=== PATIENT | female | born 1950 | race Caucasian/White ===

== ENCOUNTER 2016-09-19 10:37 | Outpatient (CLI) | payer MEDICARE ==
[2016-09-19 11:04] LABS: Hemoglobin A1c 6.4 % (4.0-6.0)
[2016-09-19 11:12] LABS: ALT (SGPT) 20 U/L (0-55); AST (SGOT) 22 U/L (5-34); Alkaline Phosphatase 93 U/L (40-150); Anion Gap 15 mmol/L (10-20); BUN (Urea Nitrogen) 24 mg/dL (9.8-20.1); Bilirubin, Total 0.7 mg/dL (0.2-1.2); Calc. Creatinine Clearance 0 mL/min (70-130); Calcium 9.6 mg/dL (7.8-10.44); Carbon Dioxide 25 mmol/L (23-31); Chloride 107 mmol/L (98-107); Estimated GFR-MDRD 52; Globulin 3.5 g/dL (2.4-3.5); Glucose 119 mg/dL (80-115); Protein, Total 7.5 g/dL (5.8-8.1); Sodium 143 mmol/L (136-145)
[2016-09-19 18:25] LABS: Creatinine, Urine 76.08 mg/dL (47-110); Microalbumin Urine 10.7 mg/dL (0.5-50.0); Microalbumin/Creat Ratio 140.6 mg/g (Less than 30)
== END 2016-09-19 10:38 | disposition home or self-care (01) ==
LOC: MADLAB 10:37
PROVIDERS: ATTEND Family Medicine
DX: E78.5 Hyperlipidemia, unspecified (principal); E11.65 Type 2 diabetes mellitus with hyperglycemia; I10 Essential (primary) hypertension
CPT/HCPCS: 36415; 80053; 82043; 83036

== ENCOUNTER 2017-05-24 12:26 | Emergency (ER) | payer MEDICARE ==
--- NOTE | 2017-05-24 14:27 | CT ---
CT OF THE BRAIN WITHOUT CONTRAST: Comparison: None. History: Head injury with head trauma. Technique: Multiple contiguous axial images were obtained in a CT of the brain without contrast. FINDINGS: There is hyperdensity in the left frontal lobe consistent with a small amount of subarachnoid hemorrh age. No interventricular hemorrhage is seen. No midline shift or downward herniation is present. The calvarium and overlying soft tissues are unremarkable. The visualized paranasal sinuses and masto id air cells are well aerated. IMPRESSION: Small subarachnoid hemorrhage in the left frontal lobe. POS: [facility]
--- NOTE | 2017-05-24 14:53 | RAD ---
THREE VIEWS LUMBOSACRAL SPINE: COMPARISON: None. HISTORY: Low back pain after injury. FINDINGS: Three views of the lumbosacral spine show normal height and alignment of the vertebral bodies and int ervertebral disks without fracture or subluxation. Small osteophytes are seen throughout the lumbar spine. Posterior facet arthrosis is seen in the lower lumbosacral spine. IMPRESSION: Mild degenerative changes of the lumbar spine without acute osseous abnormality. POS: [facility]
--- NOTE | 2017-05-24 14:54 | RAD ---
THREE VIEWS OF THE THORACIC SPINE: Comparison: None. History: Back pain after injury. FINDINGS: Three views of the thoracic spine show normal height and alignment of the vertebral bodies and interv ertebral disc without fracture or subluxation. Small osteophytes are seen throughout the thoracic spi ne. IMPRESSION: Mild degenerative changes of the thoracic spine without acute osseous abnormality. POS: [facility]
[2017-05-24] MEDS ORDERED: Morphine 4 MG/ML VIAL ONE (15:42)
[2017-05-24] MEDS ORDERED: Acetaminophen 500 MG TAB ONE (15:44)
[2017-05-24 15:52] LABS: INR-International Normal Ratio 1.1; Prothrombin Time 14.7 SEC (12.0-14.7)
[2017-05-24 15:53] LABS: PTT 42.5 SEC (22.9-36.1)
[2017-05-24 16:00] LABS: #Basophils 0.1 thou/uL (0.0-0.2); #Eosinphils 0.1 thou/uL (0.0-0.7); #Lymphocytes 2.1 thou/uL (1.20-3.40); #Monocytes 0.4 thou/uL (0.11-0.59); #Neutrophils 6.2 thou/uL (1.40-6.50); %Basophils 1.3 % (0.0-1.0); %Eosinophils 1.5 % (0.0-10.0); %Lymphocytes 22.9 % (21.0-51.0); %Monocytes 4.9 % (0.0-10.0); %Neutrophils 69.4 % (42.0-75.0); Anion Gap 15 mmol/L (10-20); BUN (Urea Nitrogen) 25 mg/dL (9.8-20.1); Calc. Creatinine Clearance 0 mL/min (70-130); Calcium 9.6 mg/dL (7.8-10.44); Carbon Dioxide 24 mmol/L (23-31); Chloride 108 mmol/L (98-107); Estimated GFR-MDRD 60; Glucose 99 mg/dL (80-115); Hemoglobin 12.8 g/dL (12.0-16.0); Mean Corpuscular HGB CONC 34.5 g/dL (32.0-36.0); Mean Corpuscular Hemoglobin 30.5 pg (27.0-31.0); Mean Corpuscular Volume 88.5 fl (81.0-99.0); Mean Platelet Volume 11.2 fL (7.4-10.4); PLT Morphology Comment Appears Decreased; Platelet Count 106 thou/uL (130-400); Potassium 4.6 mmol/L (3.5-5.1); RBC Distribution Width 13.1 % (11.5-14.5); Red Blood Cell (RBC) Count 4.19 mill/uL (4.20-5.40); Sodium 142 mmol/L (136-145)
== END 2017-05-24 16:50 | disposition short-term general hospital (02) ==
LOC: MADERS 12:26
DX: S06.6X0A Traumatic subarachnoid hemorrhage without loss of consciousness, initial encounter (principal); M54.6 Pain in thoracic spine; M54.5 Low back pain; E11.9 Type 2 diabetes mellitus without complications; I10 Essential (primary) hypertension; Z79.82 Long term (current) use of aspirin; Z79.899 Other long term (current) drug therapy; W11.XXXA Fall on and from ladder, initial encounter
CPT/HCPCS: 70450; 72072; 72100; 80048; 85025; 85610; 85730; J2270

== ENCOUNTER 2018-03-22 22:41 | Emergency (ER) | payer MEDICARE ==
[2018-03-22] MEDS ORDERED: Ibuprofen 800 MG TAB ONE (23:21)
--- NOTE | 2018-03-22 23:34 | RAD ---
LEFT KNEE FOUR VIEWS: 03/22/18 HISTORY: Injury to knee. There is some mild medial compartment joint space narrowing. There is no signs of fracture, dislocati on or joint effusion. IMPRESSION: No evidence of fracture. POS: [facility]
== END 2018-03-23 00:13 | disposition home or self-care (01) ==
LOC: MADERS 22:41
DX: S83.92XA Sprain of unspecified site of left knee, initial encounter (principal); E11.9 Type 2 diabetes mellitus without complications; Z79.82 Long term (current) use of aspirin; W17.2XXA Fall into hole, initial encounter

== ENCOUNTER 2020-10-05 08:57 | Outpatient (CLI) | payer MEDICARE | END 2020-10-05 08:58 | disposition home or self-care (01) | LOC: MADULT 08:57 | PROVIDERS: ATTEND Internal Medicine Gastroenterology | DX: K74.60 Unspecified cirrhosis of liver (principal); R16.1 Splenomegaly, not elsewhere classified | CPT/HCPCS: 93975 ==

== ENCOUNTER 2021-05-21 11:37 | Outpatient (CLI) | payer MEDICARE ==
[2021-05-22 12:44] LABS: Hemoglobin A1c 4.3 % (4.0-6.0)
== END 2021-05-21 11:38 | disposition home or self-care (01) ==
LOC: MADLAB 11:37
PROVIDERS: ATTEND Internal Medicine Endocrinology, Diabetes & Metabolism
DX: E11.65 Type 2 diabetes mellitus with hyperglycemia (principal); E55.9 Vitamin D deficiency, unspecified; I10 Essential (primary) hypertension
CPT/HCPCS: 36415; 83036; 84443

== ENCOUNTER 2022-06-24 09:44 | Outpatient (CLI) | payer MEDICARE ==
[2022-06-24 10:28] LABS: ALT (SGPT) 11 U/L (8-55); AST (SGOT) 20 U/L (5-34); Albumin 3.2 g/dL (3.4-4.8); Alkaline Phosphatase 73 U/L (40-110); Anion Gap 12 mmol/L (10-20); BUN (Urea Nitrogen) 58 mg/dL (9.8-20.1); Bilirubin, Total 0.8 mg/dL (0.2-1.2); Calc. Creatinine Clearance 0 mL/min (70-130); Calcium 8.6 mg/dL (7.8-10.44); Carbon Dioxide 19 mmol/L (23-31); Cardiac Risk 2.7 (Less than 4.5); Chloride 111 mmol/L (98-107); Cholesterol 93 mg/dl (< 200 Desired); Estimated GFR 26; Glucose 110 mg/dL (83-110); HDL Cholesterol 34 mg/dL (>60 Neg Risk); LDL Cholesterol, Calculated 47 mg/dL; Protein, Total 6.2 g/dL (5.8-8.1); Sodium 137 mmol/L (136-145); Triglycerides 60 mg/dL (Less than 150)
[2022-06-24 10:31] LABS: #Basophils 0.1 thou/uL (0.0-0.2); #Eosinphils 0.5 thou/uL (0.0-0.7); #Lymphocytes 0.7 thou/uL (1.20-3.40); #Monocytes 0.4 thou/uL (0.11-0.59); #Neutrophils 4.8 thou/uL (1.40-6.50); %Basophils 1.9 % (0.0-1.0); %Eosinophils 8.1 % (0.0-10.0); %Lymphocytes 9.9 % (21.0-51.0); %Monocytes 6.6 % (0.0-10.0); %Neutrophils 73.6 % (42.0-75.0); Hemoglobin 7.5 g/dL (12.0-16.0); Mean Corpuscular HGB CONC 32.9 g/dL (32.0-36.0); Mean Corpuscular Hemoglobin 28.5 pg (27.0-31.0); Mean Corpuscular Volume 86.6 fl (78.0-98.0); Mean Platelet Volume 8.8 fL (7.4-10.4); Platelet Count 129 10x3/uL (130-400); RBC Distribution Width 14.4 % (11.5-14.5); Red Blood Cell (RBC) Count 2.64 mill/uL (4.20-5.40); White Blood Cell (WBC) Count 6.5 10x3/uL (4.8-10.8)
[2022-06-24 12:02] LABS: Hemoglobin A1c 4.1 % (4.0-6.0)
== END 2022-06-24 09:45 | disposition home or self-care (01) ==
LOC: MADLAB 09:44
DX: E78.5 Hyperlipidemia, unspecified (principal); I10 Essential (primary) hypertension; E11.9 Type 2 diabetes mellitus without complications; E03.9 Hypothyroidism, unspecified
CPT/HCPCS: 36415; 80053; 80061; 83036; 84443; 85025